=== PATIENT | male | born 1940 | race African-American/Black ===

== ENCOUNTER → 2019-09-07 | Outpatient (CLI) | payer OTHER ==
--- NOTE | 2019-09-08 14:57 | Diagnostic Imaging Report ---
Indication: Syncopal episode today, altered mental status, history of dementia Technique: sagittal T1 fast spin echo, axial T1 FLAIR, axial T2 FLAIR, axial T2 FS PROPELLER, axial T2* GRE, axial diffusion weighted images. ADC and exponential ADC maps generated Comparison: none Findings: No abnormal areas of restricted diffusion to suggest acute infarction. No acute hemorrhage or edema. No mass effect nor midline shift. There is age-related enlargement of the ventricles and extra axial CSF spaces. There is minimal right ventricular high T2 signal, consistent with chronic microvascular ischemic change. Visualized orbits and sinuses are unremarkable. Vascular flow voids are preserved. 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 Tiny old lacunar infarcts versus prominent perivascular spaces are seen in the bilateral basal ganglia. Impression: Chronic and age-related changes Negative for acute intracranial bleed, mass effect, or infarct
== END | disposition home or self-care (01) ==
LOC: MRI 18:53
DX: R55 Syncope and collapse (principal)
CPT/HCPCS: 70551